=== PATIENT | female | born 1960 | race Caucasian/White ===

== ENCOUNTER 2024-01-06 06:18 | Inpatient (IN) | payer OTHER, SELFPAY ==
--- NOTE | 2023-12-01 11:41 | CM ---
Patient is scheduled for an elective R TKR on 01/06/24. Spoke with patient prior to surgery via telephone. Introduced role of Orthopedic Navigator. Patient reports that she lives alone in an old farmhouse with pie shaped steps to the second floor.
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 She has a cane, raised toilet seat and shower seat. She has never had VN services. PCP is TEJAL Rodriguez.
Discussed orthopedic program and post surgical plans. Reviewed anticipated length of stay and that goal is for her to return home at discharge. Also reviewed outpatient PT. Patient is in agreement with tentative plan and will go directly to
outpatient PT. She plans to go to her sister's home for a week or two (her sister's home is two story but patient will have a first floor set up. There are three steps to enter the home (2-1).
Patient will complete online education.
Plan: Orthopedic Navigator will remain available to assist with the care of patient and will reassess discharge needs after surgery.
[2023-12-18 09:17] VITALS: BMI 40.1
[2023-12-18 10:17] LABS: Hematocrit 44.4 % (37.0-47.0); Hemoglobin 14.8 g/dL (12.0-16.0); Mean Corp Hgb Conc. 33.3 g/dL (33.0-37.0); Mean Corpuscular Hgb 29.1 pg (27.0-31.0); Mean Corpuscular Volume 87.2 fL (81.0-99.0); Mean Platelet Volume 10.4 fL (7.4-10.4); Platelet Count 210 10^3/uL (130-400); Red Blood Cell Count 5.09 10^6/uL (4.20-5.40); Red Cell Dist. Width 12.6 % (11.5-14.5); White Blood Cell Count 6.9 10^3/uL (4.8-10.8)
[2023-12-18 10:53] LABS: ALT (SGPT) 18 U/L (0-35); AST (SGOT) 18 U/L (14-36); Albumin 4.2 g/dl (3.5-5.0); Alkaline Phosphatase 62 U/L (38-126); Blood Urea Nitrogen 17 mg/dl (7-17); Calcium 9.6 mg/dl (8.4-10.2); Carbon Dioxide 28 mmol/L (22-30); Chloride 100 mmol/L (98-107); Estimated Creatinine Clearance 95 ml/min; Glucose 116 mg/dl (70-99); Potassium 4.1 mmol/L (3.5-5.1); Sodium 136 mmol/L (135-145); Total Bilirubin 0.4 mg/dl (0.2-1.3); Total Protein 6.5 g/dl (6.3-8.2); eGFR > 60.00
[2023-12-18 12:23] LABS: Glycohemoglobin (HgbA1c) 5.9 % (4.0-5.6)
[2023-12-18 14:41] VITALS: BMI 40.1
[2024-01-06] VITALS (22 sets, daily range): BP systolic 75–145; BP diastolic 44–83; PULSE 78; O2SAT 95; BMI 40.1
[2024-01-06] MEDS: NORMOSOL-R 1000 IV ×2 (08:15→12:19)
[2024-01-06] MEDS: CELEBREX 200 MG PO (08:15)
[2024-01-06] MEDS: TYLENOL 650 MG PO ×4 (08:15→22:08)
--- NOTE | 2024-01-06 12:13 | W.PN.UPDATE ---
Update Note
Progress Note Update
R knee OA s/p R TKA w/ Dr Thompson 01/06/24
DVT prophylaxis - Eliquis at modified dosing, b/l venous foot pumps
- Will resume home dosing of Eliquis POD 3 if hemodynamically stable
HTN - + parameters - monitor BP
PAF - monitor on tele
- Continue Flecainide, Metoprolol
- Eliquis as stated above
Moderate, persistent asthma and KEVAN, noncompliant with device - monitor O2
- IS
- Resume inhalers
- Add supplemental O2 HS
Morbid obesity, BMI 40.1 - would benefit for Cefadroxil 500 mg PO BID x1 week upon d/c
HLD
ASD
Thyroid cancer status post total thyroidectomy
[2024-01-06] MEDS: ROXICODONE 5 MG PO ×3 (12:30→22:08)
--- NOTE | 2024-01-06 13:50 | PTCARENOTE ---
Pt received from the PACU via bed. Transport was w/o incident. Pt is AAOx3, HRR, lungs are clear, resp. easy. Pt with Aquacell drsg to her right Knee C/D/I, 2 pinpoint spots of drainage noted, no current bleeding noted at this time. VSS, Pt is
afebrile. Pt instructed on plan of care. Pt verbalized understanding of instructions. Call merino is within reach.
[2024-01-06] MEDS: LIDOCAINE 4% PATCH 2 PATCH TOPICAL (16:36)
[2024-01-06] MEDS: PROTONIX 40 MG PO (16:36)
[2024-01-06] MEDS: VITAMIN D3 (cholecalciferol) 25 MCG PO (16:36)
[2024-01-06] MEDS: ANCEF 5 IV (18:46)
[2024-01-06] MEDS: COLACE 100 MG PO (22:08)
[2024-01-06] MEDS: ELIQUIS 2.5 MG PO (22:08)
[2024-01-06] MEDS: DECADRON 4 MG PO (22:08)
[2024-01-06] MEDS: BACTROBAN 2% OINTMENT 1 APPLIC NASAL (22:09)
[2024-01-06] MEDS: TAMBOCOR 50 MG PO (22:12)
[2024-01-07] MEDS: TYLENOL 650 MG PO ×4 (00:53→11:58)
[2024-01-07] MEDS: ROXICODONE 10 MG PO ×2 (00:54→10:17)
[2024-01-07] MEDS: ANCEF 5 IV (02:15)
[2024-01-07 03:48] VITALS: BP 126/61
[2024-01-07] MEDS: SYNTHROID 175 MCG PO (05:58)
[2024-01-07] MEDS: ROXICODONE 5 MG PO ×2 (06:01→14:32)
[2024-01-07 06:38] VITALS: BP 122/53
[2024-01-07] MEDS: ADVAIR HFA 230/21 MCG INHALER 1 PUFF INH (07:23)
[2024-01-07] MEDS: BACTROBAN 2% OINTMENT 1 APPLIC NASAL (08:12)
[2024-01-07] MEDS: LIDOCAINE 4% PATCH 2 PATCH TOPICAL (08:12)
[2024-01-07] MEDS: TAMBOCOR 50 MG PO (08:13)
[2024-01-07] MEDS: VITAMIN D3 (cholecalciferol) 25 MCG PO (08:14)
[2024-01-07] MEDS: COLACE 100 MG PO (08:14)
[2024-01-07] MEDS: ELIQUIS 2.5 MG PO (08:14)
[2024-01-07] MEDS: PROTONIX 40 MG PO (08:14)
[2024-01-07] MEDS: TOPROL XL 50 MG PO (08:26)
--- NOTE | 2024-01-07 09:01 | CM ---
Addendum entered by Alem Borrero 01/07/24 12:57:
Patient did well with therapy. She is concerned about pain but feels comfortable going home.
Original Note:
Reviewed chart and held rounds with PT, OT and nursing. Patient admitted as planned for elective R TKR. Met with patient at bedside. Confirmed information previously obtained for assessment. Also discussed discharge plans. The plan is for patient to
return home at discharge. She will go to her sister's home at discharge. Patient will go directly to outpatient PT and will go to [facility]. She has an appointment scheduled for Thursday, 01/07. Reviewed need to schedule appointment with PA at .
Donna's office in two weeks for removal of erin.
Patient has a rolling walker, cane and shower seat.
She will use [facility] pharmacy for discharge prescriptions.
[2024-01-07] MEDS: DELTASONE 40 MG PO (10:17)
[2024-01-07] MEDS: NEURONTIN 200 MG PO (10:17)
[2024-01-07 12:00] VITALS: BP 119/69; PULSE 60; O2SAT 97
[2024-01-07 12:40] VITALS: BP 123/60
[2024-01-07 12:55] VITALS: BP 132/69; PULSE 60; O2SAT 95
--- NOTE | 2024-01-07 13:45 | W.PN.ORTHO ---
Today's Communication / Plan
-
D/c today since clinically stable, did well w/ PT and OT.
Assessment
.
Distal Motor Intact: Yes
Dressing:
Trace old incisional bleeding. Dressing otherwise C/D/I.
Assessment:
R knee OA s/p R TKA w/ Dr Thompson 01/06/24
DVT prophylaxis - Eliquis at modified dosing, b/l venous foot pumps
- Will resume home dosing of Eliquis POD 3 since hemodynamically stable
HTN - + parameters - BPs stable
PAF - maintaining NSR on tele
- Continue Flecainide, Metoprolol
- Eliquis as stated above
Moderate, persistent asthma and KEVAN, noncompliant with device - O2 stable on RA
- IS
- Resumed inhalers
- s/p supplemental O2 HS
Morbid obesity, BMI 40.1 - would benefit for Cefadroxil 500 mg PO BID x1 week upon d/c
HLD
ASD
Thyroid cancer status post total thyroidectomy
Plan
.
Surgery / Date: R TKA w/ Dr Thompson 01/06/24
DVT Prophylaxis: Other (Eliquis )
Activity:
Out of bed.
PT/OT
Discharge Plan: Home w/ Outpatient PT
Subjective
.
.:
Patient resting comfortably in her chair this AM.
R knee pain improving w/ pain med adjustments made yesterday and this AM.
Denies any new significant complaints.
Eager for potential d/c today.
Vital Signs and Labs
.
Vital Signs and Labs:
Lab Results
12/18/23 09:08
12/18/23 09:08
Temp Pulse Resp BP Pulse Ox
98.1 F 61 17 123/60 96
01/07/24 12:40 01/07/24 12:40 01/07/24 12:40 01/07/24 12:40 01/07/24 12:40
Non-invasive Hgb result: 14.1
Physical Exam
-
HEENT: No pallor, cyanosis, or jaundice. Throat clear.
NECK: Supple. No JVD.
RESPIRATORY: Lungs clear to auscultation.
CVS: S1, S2 normal. RRR.
ABDOMEN: Soft, non-tender. No distension. Morbidly obese.
EXTREMITIES: Mild post-op R knee edema. Strength equal, no calf pain with palpation/dorsiflexion. Calves soft.
COOPERATIVE EDUCATION COORDINATOR: AOx3. No focal deficits. assembler motor vehicle grossly intact
--- NOTE | 2024-01-07 14:00 | W.DS.TRANS ---
DC Summary - Tourist Information Assistant
-
Discharge Instructions:
Discharge Diagnosis/Procedures R knee OA s/p R TKA w/ Dr Thompson 01/06/24
Diet Other diet
Additional Diets Diabetic carb controlled x1 week for wound
healing/infection prevention; then resume
regular diet.
Activity As tolerated,With Walker
Driving Restrictions Not until seen by your Dr
Bathing Restrictions OK to Shower
Other Services PT
Wound Care Dressing to be removed 1 week post-surgery.
Holly to be removed in 2 weeks at follow-up
appointment with surgeon's office.
Instructions:
Stand-Alone Forms: Total Hip/Knee Replacement D/C
Changes to Home Medications: Yes
Discharge Medications:
DC Medications w/original date entered in [facility]
apixaban 5 mg tablet (Eliquis) 5 mg PO BID Blood Clot Prevention/Tx 07/06/20
fluticasone propionate 50 mcg/actuation nasal spray,suspension 1 spray intranasal DAILY PRN allergy 07/06/20
Lactobacills gasseri-Bifidobac bifidum,longum 1.5 billion cell capsule (Probiotic Colon Care) 1 cap PO DAILY Supplement 12/15/23
cholecalciferol (vitamin D3) 25 mcg (1,000 unit) tablet (Vitamin D3) 25 mcg PO DAILY Supplement 12/15/23
flecainide 50 mg tablet 50 mg PO Q12H Heart Disease/Condition 12/15/23
fluticasone 500 mcg-salmeterol 50 mcg/dose blistr powdr for inhalation (Advair Diskus) 1 inh inhalation DAILY Lung/Breathing Issues 12/15/23
levothyroxine 175 mcg tablet 175 mcg PO DAILY Thyroid 12/15/23
metoprolol succinate 25 mg tablet,extended release 24 hr 50 mg PO DAILY Blood Pressure 12/15/23
zinc acetate 50 mg (zinc) capsule 50 mg PO DAILY Supplement 12/15/23
mupirocin 2 % topical ointment 1 applic topical BID infection prevention #1 tube 12/18/23
ascorbic acid (vitamin C) 1,000 mg tablet,extended release (Vitamin C ER) 1,000 mg PO DAILY Supplement 01/06/24
acetaminophen 500 mg tablet 1,000 mg (2 x 500 mg) PO Q6H #60 tabs 01/07/24
albuterol sulfate 90 mcg/actuation aerosol inhaler 1 puff inhalation R Q4HPRN PRN asthma/SOB #6.7 grams 01/07/24
apixaban 2.5 mg tablet (Eliquis) 2.5 mg PO BID #3 tabs 01/07/24
cefadroxil 500 mg capsule 500 mg PO BID #14 caps 01/07/24
docusate sodium 100 mg capsule 100 mg PO BID #30 caps 01/07/24
gabapentin 100 mg capsule 200 mg (2 x 100 mg) PO TID neuropathic pain #30 caps 01/07/24
lidocaine 4 % topical patch 2 patch topical DAILY #30 ea 01/07/24
oxycodone 5 mg tablet 5 - 10 mg (1 - 2 x 5 mg) PO Q4H PRN moderate-severe pain #30 tabs 01/07/24
pantoprazole 40 mg tablet,delayed release 40 mg PO DAILY #30 tabs 01/07/24
prednisone 10 mg tablet 40 mg (4 x 10 mg) PO TAPER #20 tabs 01/07/24
prochlorperazine maleate 5 mg tablet 5 mg PO Q8H PRN nausea/vomiting #30 tabs 01/07/24
sennosides 8.6 mg tablet (Senna Laxative) 17.2 mg (2 x 8.6 mg) PO BID #30 tabs 01/07/24
Home Medication Changes
acetaminophen 500 mg tablet 1,000 mg (2 x 500 mg) PO Q6H #60 tabs 01/07/24
apixaban 2.5 mg tablet (Eliquis) 2.5 mg PO BID #3 tabs 01/07/24 - until POD 3
cefadroxil 500 mg capsule 500 mg PO BID #14 caps 01/07/24
docusate sodium 100 mg capsule 100 mg PO BID #30 caps 01/07/24
gabapentin 100 mg capsule 200 mg (2 x 100 mg) PO TID neuropathic pain #30 caps 01/07/24
lidocaine 4 % topical patch 2 patch topical DAILY #30 ea 01/07/24
oxycodone 5 mg tablet 5 - 10 mg (1 - 2 x 5 mg) PO Q4H PRN moderate-severe pain #30 tabs 01/07/24
pantoprazole 40 mg tablet,delayed release 40 mg PO DAILY #30 tabs 01/07/24
prednisone 10 mg tablet 40 mg (4 x 10 mg) PO TAPER #20 tabs 01/07/24
prochlorperazine maleate 5 mg tablet 5 mg PO Q8H PRN nausea/vomiting #30 tabs 01/07/24
sennosides 8.6 mg tablet (Senna Laxative) 17.2 mg (2 x 8.6 mg) PO BID #30 tabs 01/07/24
Pending Results: No
== END 2024-01-07 14:55 | disposition home or self-care (01) | DRG 470 ==
LOC: 2 SOUTH 06:18
PROVIDERS: ADMITTING PHYSICIAN Orthopaedic Surgery; FAMILY PHYSICIAN Nurse Practitioner Family
PROC: 0SRC0J9 Replacement of Right Knee Joint with Synthetic Substitute, Cemented, Open Approach (ICD-10-PCS; 2024-01-06)
DX: M17.11 Unilateral primary osteoarthritis, right knee (principal); Z68.41 Body mass index [BMI] 40.0-44.9, adult; E66.01 Morbid (severe) obesity due to excess calories; I10 Essential (primary) hypertension; I48.0 Paroxysmal atrial fibrillation; Z79.01 Long term (current) use of anticoagulants; J45.909 Unspecified asthma, uncomplicated; E78.5 Hyperlipidemia, unspecified
CPT/HCPCS: 36415; 73560; 80053; 83036; 85027; 87070; 94640; 97110; 97116; 97162; 97166; 97530; 97535; C1713; C1776

== ENCOUNTER 2024-07-06 03:45 | Observation (INO) | payer OTHER, SELFPAY ==
[2024-07-05 22:12] VITALS: BP 179/88
--- NOTE | 2024-07-05 22:46 | ED.GENMED ---
History of Present Illness
<PHAM Childs - Last Filed: 07/06/24 00:34>
General
Chief Complaint: Musculo-Skeletal Complaint
Source: patient
Time Seen by Provider: 07/05/24 22:46
Nursing documentation reviewed up to this point in time: agreed with
History of Present Illness
History of Present Illness:
Patient is a 64 year old female with a history of R TKA arthritis and a bakers cyst presenting to the ED with complaints of left knee pain and right arm pain x 3 hours. She states at 8pm her knee locked up and had a bout of sharp pain. That lead her
to place herself on the ground. She denies falling. When trying to get up, she felt a pop in her shoulder. This was followed by sharp pain in her arm and states her biceps now feels tight. The pain in her knee is only exacerbated when trying to bare
weight and extension of the knee. She has a history of arthritis in her left knee but states that her knee has never locked up and had sharp pain like this before. Sitting down she currently has no knee pain. Her arm pain is constant and described
as sharp when extending elbow, but a mild tightness at rest. Tylenol mildly alleviated pain. Patient denies any sob light headedness numbness tingling bruising.
Patient has a history of arthritis in her left knee and a R TKA. She states shes waiting to get her left knee replaced. Patient also admits to a bakers cyst in her right knee which she claims is what caused her knee to lock up. Patient denies
alcohol or tobacco use.
Past History
<PHAM Childs - Last Filed: 07/06/24 00:34>
Past History
ED Past Medical History: Arrthythmia (afib), Cancer (Thyroid cancer), COPD, HTN, Hypothyroidism and Other (closed ASD)
ED Past Surgical History: Cardiac (ASD closure, A. fib ablation) and Other (Thyroidectomy)
Social History
Tobacco: Non-smoker
Alcohol: None
Drug: None
Personal:
Living: with family
Employment: Employed
Family History
Family History: Other (Noncontributory)
Review of Systems
<PHAM Childs - Last Filed: 07/06/24 00:34>
Review of Systems
Constitutional: Reports no symptoms
Respiratory: Reports no symptoms
Cardiac: Reports no symptoms
Musculoskeletal: Reports joint pain (left knee ) and muscle pain (right arm )
Neurological: Reports no symptoms
Hematologic/Lymphatic: Reports no symptoms
Phy Exam
<PHAM Childs - Last Filed: 07/06/24 00:34>
General Physical Exam
General Presentation: mild distress
General age: appears stated age
General Habitus: normal
General Mental: alert
Cardiovascular Exam
Cardiovascular Exam: regular rate/rhythm, no edema, no gallop, no JVD and no murmur
Pulmonary Exam
Pulmonary Exam: lungs clear, no respiratory distress, no rales, chest non tender, no crackles, no rhonchi, no stridor, no wheezing and no cough
Sensory
Sensory Exam: intact (sensation intact to light touch on upper and lower extremities b/l)
Musculoskeletal Exam
Musculoskeletal Exam: other (no tenderness to palpation of left knee, pain with passive extension of knee at 40 degrees, pain with extension against resistance strength intact, left biceps tender to palpation and is tight, elbow and shoulder
strength intact.)
Course
<PHAM Childs - Last Filed: 07/06/24 00:34>
Orders/Labs/Results
Orders:
Orders
07/05/24 22:16
Knee, Left 4 or More Views [CR Knee - Left 4 Or More View*] Urgent
Comment:
Reason For Exam: pain
07/06/24 00:08
Pt Eval And Treat Urgent
Activity Level: Out of Bed-Early Mobility
Vital Signs
Initial and Last Documented VS:
Initial Vital Signs
Temp Pulse Resp BP Pulse Ox
98.7 F 65 15 179/88 94
07/05/24 22:12 07/05/24 22:12 07/05/24 22:12 07/05/24 22:12 07/05/24 22:12
Last Documented Vital Signs
Temp Pulse Resp BP Pulse Ox
98.7 F 65 15 179/88 94
07/05/24 22:12 07/05/24 22:12 07/05/24 22:12 07/05/24 22:12 07/05/24 22:12
<Vijay Harding DO - Last Filed: 07/06/24 00:11>
Orders/Labs/Results
Orders:
Orders
07/05/24 22:16
Knee, Left 4 or More Views [CR Knee - Left 4 Or More View*] Urgent
Comment:
Reason For Exam: pain
07/06/24 00:08
Pt Eval And Treat Urgent
Activity Level: Out of Bed-Early Mobility
Vital Signs
Initial and Last Documented VS:
Initial Vital Signs
Temp Pulse Resp BP Pulse Ox
98.7 F 65 15 179/88 94
07/05/24 22:12 07/05/24 22:12 07/05/24 22:12 07/05/24 22:12 07/05/24 22:12
Last Documented Vital Signs
Temp Pulse Resp BP Pulse Ox
98.7 F 65 15 179/88 94
07/05/24 22:12 07/05/24 22:12 07/05/24 22:12 07/05/24 22:12 07/05/24 22:12
<PHAM Childs - Last Filed: 07/06/24 00:34>
MDM/Problems Addressed
Differential Diagnosis Includes:
meniscus tear, biceps tear, DJD, bakers cyst
MDM/Problems Addressed:
xray of knee shows no fracture, place in knee immobilizer 1234a update knee immobilizer placed, admit for potential meniscus and biceps tear
<PHAM Childs - Last Filed: 07/06/24 00:34>
*Critical Care Note
Total Time (30-74mins, 75-104mins- exclusive of procedures): Not Applicable
ED Attending Note
<PHAM Childs - Last Filed: 07/06/24 00:34>
-
Portions of this chart may have been created with voice recognition software.� Occasional wrong word or��sound alike� substitutions may have occurred due to the inherent limitations of voice recognition software.
<Vijay Harding DO - Last Filed: 07/06/24 00:11>
ED Attending Note
Patient seen and examined by attending physician: Yes
I performed the substantive portion of visit, reviewed & personally made and approve the management plan that is documented in note by myself or MAY.: Yes
ED Attending Note:
Pleasant 64-year-old female presents with left knee pain and right arm pain for the last 3 hours. Patient states that her knee locked up around 8 PM and she reports having sharp pain. She did not fall. She was trying to get up out of a chair and
she was unable to do so. In the process she injured her right arm. She states that she had knee replacement on the right by Dr. Thompson 6 months ago. She states that her right knee is painful. Now she is complaining of left knee pain. She
states that she has been in rehab and is due to get the left knee replaced but for insurance reasons she is unable to do so until next year. She tried ambulating with a walker but was unable to. Patient was seen in conjunction with the PA student.
I have reviewed and agree with the history and treatment plan presented. On my independent physical exam, patient is awake, alert, and oriented x3, minimal acute distress while icing both her right arm and her left knee. She has good distal
pulses. No hip pain bilaterally on the phone test. Ankle is normal full range of motion without pain or tenderness to palpation. Left knee has a fullness behind the left knee especially on the left side. There is midline joint tenderness on the
left lateral side. Limited range of motion secondary to pain and obstruction. Right bicep is full and bulging consistent with a partial biceps tear. She does have good muscle strength. Good distal pulses.
Patient wishes to be discharged home. I do not see how this is an option since she is unable to ambulate with a walker. She has multiple steps in her home. Plan is to put her in a knee immobilizer and see if she can tolerate ambulating with a
walker. She has a suspected right bicep tear.
Discharge Plan
Departure
Patient Disposition: Admit
Date of Disposition: 07/06/24
Time of Disposition: 00:07
Admit to: Med/Surg
Presentation/result/management discussed w/ accepting MD/DO: Hospitalist
Condition: Good
Discharge Problem:
Acute internal derangement of left knee, Suspected right biceps tear
Prescriptions:
No Action
Eliquis 5 MG tablet
5 mg PO BID
fluticasone propionate 1 SPRAY spray,suspension
1 spray intranasal DAILY PRN (Reason: allergy)
zinc acetate 50 mg (zinc) Capsule
50 mg PO DAILY
fluticasone propion-salmeterol [Advair Diskus] 500-50 mcg/dose Blister With Device
1 inh INHALATION DAILY
metoprolol succinate 25 mg Tablet Extended Release 24 Hr
50 mg PO DAILY
Patient Comments:
took 25 mg 01/06/24 in am
cholecalciferol (vitamin D3) [Vitamin D3] 25 mcg (1,000 unit) Tablet
25 mcg PO DAILY
Probiotic Colon Care 1.5 billion cell Capsule
1 cap PO DAILY
levothyroxine 175 mcg Tablet
175 mcg PO DAILY
flecainide 50 mg Tablet
50 mg PO Q12H
mupirocin 2 % ointment
1 applic topical BID Qty: 1 0RF
Patient Comments:
started treatment thursday01/03/24 in am and completed BID, last completed 01/06/24 in am
Vitamin C 1,000 mg Tablet Extended Release
1,000 mg PO DAILY
docusate sodium 100 mg Capsule
100 mg PO BID Qty: 30 0RF
prochlorperazine maleate 5 mg Tablet
5 mg PO Q8H PRN (Reason: nausea/vomiting) Qty: 30 0RF
Eliquis 2.5 mg Tablet
2.5 mg PO BID Qty: 3 0RF
Rx Instructions:
Cut 5 mg tab in 09/29 (= 2.5 mg) and take twice a day until 4/12 PM.
Can resume Eliquis 5 mg twice daily on 01/08 AM
lidocaine 4 % Adhesive Patch,Medicated
2 patch topical DAILY Qty: 30 0RF
Rx Instructions:
Over the counter. 12 hours on, 12 hours off.
Apply to sides of right knee/thigh.
gabapentin 100 mg Capsule
200 mg PO TID Qty: 30 0RF
oxycodone 5 mg Tablet
5 - 10 mg PO Q4H PRN (Reason: moderate-severe pain) Qty: 30 0RF
Rx Instructions:
1 tab for moderate pain, 2 if severe.
Dx total joint.
sennosides [Senna Laxative] 8.6 mg Tablet
17.2 mg PO BID Qty: 30 0RF
pantoprazole 40 mg Tablet,Delayed Release (Dr/Ec)
40 mg PO DAILY Qty: 30 0RF
Rx Instructions:
Take daily while on post-surgical pain meds to reduce GI upset.
albuterol sulfate 90 mcg/actuation Hfa Aerosol Inhaler
1 puff inhalation R Q4HPRN PRN (Reason: asthma/SOB) Qty: 6.7 0RF
prednisone 10 mg tablet
40 mg PO TAPER Qty: 20 0RF
Rx Instructions:
4 TABS X 2 DAYS, 3 TABS X 2 DAYS, 2 TABS X 2 DAYS, 1 TAB X 2 DAYS, THEN STOP
cefadroxil 500 mg capsule
500 mg PO BID Qty: 14 0RF
Rx Instructions:
Start night of discharge and continue twice a day for 1 week.
acetaminophen 500 mg Tablet
1,000 mg PO Q6H Qty: 60 0RF
Rx Instructions:
DO NOT exceed >4000 mg daily.
Referrals:
Danika Leyva CRNP [Family Provider] -
Interventions
Interventions:
*Risk Screen - Suicide Last Done: 07/05/24 22:12
*General Assessment Last Done: 07/05/24 22:12
*Neglect/Abuse Screening Last Done: 07/05/24 22:12
*ED COVID-19 Vaccine History Last Done: 07/05/24 22:12
ED-Musculoskeletal Assessment Last Done: 07/05/24 22:54
Discharge Date and Time
Print Language: SOUTH [place]UDANESE
[2024-07-06] VITALS (13 sets, daily range): BP systolic 91–138; BP diastolic 60–75; PULSE 54–55; O2SAT 95; BMI 41.3
[2024-07-06] MEDS: ZOFRAN 4 MG IV (01:18)
[2024-07-06] MEDS: DILAUDID 0.5 MG IV ×2 (01:24→09:03)
[2024-07-06] MEDS: TYLENOL PO (01:34)
--- NOTE | 2024-07-06 02:21 | HPS.HSE ---
Family Physician
-
Family Physician: TEJAL Rodriguez
Chief Complaint
-
L Knee pain / R arm pain
History of Present Illness
Patient is a 64y F with PMH significant for A-Fib, hypertension and DJD who presents to ED complaining of left knee and right arm pain. Patient states that she has been feeling fairly well lately. She has chronic discomfort in the L knee and is
planning for TKA in 2024. This evening while readying for bed, her L knee 'gave out' on her. She started to fall and reached out to grab a chair with her R hand. She felt a 'pop' and immediate pain in the R shoulder. Patient had pain in the L
knee and R shoulder following this event. She did not strike her head. She did not lose consciousness.
Medical History
Past Medical History
Past Medical History: Reports Other
Additional Past Medical History:
Atrial Fibrillation
Moderate Persistent Asthma
Thyroid Cancer
Obesity
DJD
Past Surgical History: Reports Other
Additional Past Surgical History:
Cardioversions
PVI Ablation
Right TKA
ASD Repair
LEEP
Thyroidectomy
Social History
Tobacco: Non-smoker
Alcohol: None
Drug: None
Family History
Family History: Not pertinent
Allergies / Home Medications
Allergies reflects when Allergies were last updated in [facility].
Home Medications with original date entered in [facility]
Allergy/Medication List:
Allergies
Allergy/AdvReac Type Severity Reaction Status Date / Time
codeine Allergy Vomiting Verified 07/06/24 00:45
latex Allergy Rash Verified 07/06/24 00:45
Penicillins Allergy Rash Verified 07/06/24 00:45
epinephrine AdvReac Intermediate Atrial Verified 07/06/24 00:45
Fibrillation
Home Medications
fluticasone propionate 50 mcg/actuation nasal spray,suspension 1 spray intranasal DAILY PRN allergy 07/06/20
Lactobacills gasseri-Bifidobac bifidum,longum 1.5 billion cell capsule (Probiotic Colon Care) 1 cap PO DAILY Supplement 12/15/23
cholecalciferol (vitamin D3) 25 mcg (1,000 unit) tablet (Vitamin D3) 25 mcg PO DAILY Supplement 12/15/23
flecainide 50 mg tablet 50 mg PO Q12H Heart Disease/Condition 12/15/23
fluticasone 500 mcg-salmeterol 50 mcg/dose blistr powdr for inhalation (Advair Diskus) 1 inh inhalation DAILY Lung/Breathing Issues 12/15/23
levothyroxine 175 mcg tablet 200 mcg PO DAILY Thyroid 12/15/23
metoprolol succinate 25 mg tablet,extended release 24 hr 100 mg PO DAILY Blood Pressure 12/15/23
zinc acetate 50 mg (zinc) capsule 50 mg PO DAILY Supplement 12/15/23
albuterol sulfate 90 mcg/actuation aerosol inhaler 1 puff inhalation R Q4HPRN PRN asthma/SOB #6.7 grams 01/07/24
Frankincense topical PRN inflammation 07/06/24
acetaminophen 500 mg tablet 500 mg PO Q6H PRN pain 07/06/24
apixaban 2.5 mg tablet (Eliquis) 5 mg PO BID 07/06/24
cyanocobalamin (vitamin B-12) 1,000 mcg tablet (Vitamin B-12) 1,000 mcg PO DAILY 07/06/24
Review of Systems
-
History Source: Patient
A 12 point ROS was completed and negative except as noted: Yes
Constitutional: Denies Fever or Chills
Respiratory: Denies Cough or Trouble Breathing
Cardiac: Denies Chest Pain or Palpitations
Abdomen/GI: Denies Abdominal Pain, Nausea, Vomiting or Diarrhea
: Denies Dysuria or Frequency
Musculoskeletal: Reports Joint Pain; Denies Edema
Neurological: Denies Dizzy or Headache
Psych: Denies Depression or Anxiety
Physical Exam
Vital Signs
Vital Signs
Temp Pulse Resp BP Pulse Ox
98.7 F 65 15 179/88 95
07/05/24 22:12 07/05/24 22:12 07/05/24 22:12 07/05/24 22:12 07/06/24 01:53
Physical Exam
General: Other (64y F in no acute distress.)
HEENT: Moist mucous membranes
Respiratory: Clear; No Wheezes, Rales or Rhonchi
Cardiac: S1/S2 and Regular Rhythm; No Murmur
GI: Soft, Non Tender, Non Distended and Normal Bowel Sounds
Musculoskeletal: No Clubbing, No Cyanosis, No Edema and Other (R biceps with prominence and focal tenderness c/w partial tear. No anterior shoulder tenderness. L Knee with posterior / lateral tenderness - pain with weight bearing.)
Neuro: AO x 3
Impression/Plan
-
A/P: Patient is a 64y F with PMH significant for A-Fib, hypertension and DJD who presents to ED after fall at home complaining of L knee and R shoulder pain.
Ambulatory Dysfunction
- Observe overnight for further evaluation and treatment.
- Due to her combination of injuries, patient is not safe for discharge to home alone this evening.
- PT / OT evaluations in the AM for ambulation / mobility strategies.
Left Knee Pain
- Known DJD in the knee and planned TKA in the future.
- ? acute soft tissue / structural injury during fall
- Immobilizer in place for now.
- Ortho evaluation for additional recommendations.
Right Biceps Tear
- History and exam c/w partial biceps tear.
- Supportive care / pain control.
- Ortho evaluation for additional recommendations.
Paroxysmal Atrial Fibrillation
- Stable / in NSR at present.
- Continue current medications including flecainide, Eliquis, etc.
- Monitor on tele given antiarrhythmic medications.
Moderate Persistent Asthma
- Stable. No evidence of acute exacerbation.
- Continue daily Advair.
Obesity due to excess calories
- Affects all aspects of care.
- Encourage healthy diet and exercise as tolerated for goal of weight loss.
DVT Prophylaxis: On Eliquis.
Code Status: Full
[2024-07-06] MEDS: TYLENOL 1000 MG PO ×2 (04:50→09:03)
[2024-07-06 05:28] LABS: Hematocrit 39.4 % (37.0-47.0); Hemoglobin 13.6 g/dL (12.0-16.0); Mean Corp Hgb Conc. 34.5 g/dL (33.0-37.0); Mean Corpuscular Hgb 29.9 pg (27.0-31.0); Mean Corpuscular Volume 86.6 fL (81.0-99.0); Mean Platelet Volume 9.8 fL (7.4-10.4); Platelet Count 199 10^3/uL (130-400); Red Blood Cell Count 4.55 10^6/uL (4.20-5.40); Red Cell Dist. Width 12.7 % (11.5-14.5); White Blood Cell Count 7.1 10^3/uL (4.8-10.8)
[2024-07-06 05:55] LABS: Blood Urea Nitrogen 19 mg/dl (7-17); Calcium 8.9 mg/dl (8.4-10.2); Carbon Dioxide 25 mmol/L (22-30); Chloride 102 mmol/L (98-107); Estimated Creatinine Clearance 96 ml/min; Glucose 105 mg/dl (70-99); Potassium 4.6 mmol/L (3.5-5.1); Sodium 139 mmol/L (135-145); eGFR > 60.00
[2024-07-06] MEDS: SYNTHROID 200 MCG PO (06:10)
[2024-07-06] MEDS: TAMBOCOR 50 MG PO (06:44)
[2024-07-06] MEDS: ADVAIR HFA 230/21 MCG INHALER 2 PUFF INH (08:37)
[2024-07-06] MEDS: ELIQUIS 5 MG PO (09:03)
--- NOTE | 2024-07-06 12:36 | CM ---
Addendum entered by Annita Otto RN 07/06/24 13:37:
Patient for discharge to home today. CM updated [facility] medical scientific liaison with discharge.
PLAN: Home with [facility].
Addendum entered by Annita Otto RN 07/06/24 12:39:
Physical Address:
[facility]
[place] [id number]
Original Note:
Cm met with patient in room. Patient is currently under observation. CM explain observation status at length. Patient refusing to sign OBS letter because she does not agree with level of care. Cm provided patient with copy of OBS letter for her
review.
CM reviewed PT notes. Plan for patient to return home with [facility]. JOSE updated [facility] medical scientific liaison with new referral.
PLAN: Home with home PT.
--- NOTE | 2024-07-06 12:49 | W.PN.UPDATE ---
Update Note
Progress Note Update
Seen and examined independent of overnight physician. States pain was relieved after receiving IV pain medication earlier today. States ice has significantly improved the swelling in the left knee and right shoulder. [facility] worked with physical
therapy earlier today and agreed and said okay if she has to return home. Patient agreed for [facility] therapy. Patient understands return to ER with increased left knee pain and right bicep pain. Patient says she will follow-up with [facility]
orthopedic in the office.
General: Other (64y F in no acute distress.)
HEENT: Moist mucous membranes
Respiratory: Clear; No Wheezes, Rales or Rhonchi
Cardiac: S1/S2 and Regular Rhythm; No Murmur
GI: Soft, Non Tender, Non Distended and Normal Bowel Sounds
Musculoskeletal: No Clubbing, No Cyanosis, No Edema and Other (R biceps with prominence and focal tenderness c/w partial tear. No difficulty extending all function of the right elbow. Intact light radial and ulnar pulses. No anterior shoulder
tenderness. L Knee with posterior / lateral tenderness/knee brace noted)
Neuro: AO x 3
A/P: Patient is a 64y F with PMH significant for A-Fib, hypertension and DJD who presents to ED after fall at home complaining of L knee and R shoulder pain.
Ambulatory Dysfunction
- PT / OT evaluations -home VN.
Left Knee Pain
- Known DJD in the knee and planned TKA in the future.
- Knee xray negative for fracture. Due to undergo LEFT TKA in near future.
- Immobilizer in place for now.
- Ortho was notified overnight who recommended OP f/u in office.
- Pt knows to return to ER if with increase swelling/pain
Right Biceps Tear
- History and exam c/w partial biceps tear.
- Supportive care / pain control/Ice pack
- Ortho was notified overnight who recommended OP f/u in office. Pt knows to return to ER if with increase swelling/pain
Paroxysmal Atrial Fibrillation
- Stable / in NSR at present.
- Continue current medications including flecainide, Eliquis, etc.
- Monitor on tele given antiarrhythmic medications.
Moderate Persistent Asthma
- Stable. No evidence of acute exacerbation.
- Continue daily Advair.
Obesity due to excess calories
- Affects all aspects of care.
- Encourage healthy diet and exercise as tolerated for goal of weight loss.
DVT Prophylaxis: On Eliquis.
Code Status: Full
--- NOTE | 2024-07-06 12:56 | W.DCSUMMARY ---
Discharge Summary
Discharge Data
Date of Admission: 07/06/24
Date of Discharge: 07/06/24
-
Pending Results: No
Hospital Course
Patient is a 64y F with PMH significant for A-Fib, hypertension and DJD who presents to ED after fall at home complaining of L knee and R shoulder pain. Patient left knee x-ray was negative for fracture. Patient was kept in place. Patient was
able to ambulate with a walker. Patient worked with physical and Occupational Therapy. Patient with suspected right bicep tear partial. Swelling and pain was controlled with ice and pain medication. Patient was eval by physical and Occupational
Therapy. Patient will call and make an appointment with Dr. Thompson in the office as she had seen them in the past. Patient understands return to ER with increased left knee pain and right bicep pain. Patient says she will follow-up with [facility] orthopedic in the office. Patient requested pain medication as with severe pain and was agreeable to take oxycodone as she tolerated that in the past.
Discharge Plan
-
Patient Disposition: Home with Home Care
Discharge Diagnosis/Procedures: Mechanical fall
Left knee pain
Suspected right partial bicep tear
Condition: Fair
Diet: As tolerated
Activity: With assistance, As tolerated and No strenuous activity
Referrals:
Danika Leyva CRNP [Family Provider] -
Srikanth Thompson MD [Active] - in less than 1 week
Prescriptions:
New
oxycodone 5 mg Tablet
5 mg PO BIDPRN PRN (Reason: severe pain) Qty: 8 0RF
Continued
fluticasone propionate 1 SPRAY spray,suspension
1 spray intranasal DAILY PRN (Reason: allergy)
zinc acetate 50 mg (zinc) Capsule
50 mg PO DAILY
fluticasone propion-salmeterol [Advair Diskus] 500-50 mcg/dose Blister With Device
1 inh INHALATION DAILY
metoprolol succinate 25 mg Tablet Extended Release 24 Hr
50 mg PO DAILY
Patient Comments:
took 25 mg 01/06/24 in am
cholecalciferol (vitamin D3) [Vitamin D3] 25 mcg (1,000 unit) Tablet
25 mcg PO DAILY
Probiotic Colon Care 1.5 billion cell Capsule
1 cap PO DAILY
levothyroxine 175 mcg Tablet
200 mcg PO DAILY
flecainide 50 mg Tablet
50 mg PO Q12H
albuterol sulfate 90 mcg/actuation Hfa Aerosol Inhaler
1 puff inhalation R Q4HPRN PRN (Reason: asthma/SOB) Qty: 6.7 0RF
cyanocobalamin (vitamin B-12) [Vitamin B-12] 1,000 mcg Tablet
1,000 mcg PO DAILY
acetaminophen 500 mg tablet
500 mg PO Q6H PRN (Reason: pain)
Rx Instructions:
DO NOT exceed >4000 mg daily.
Eliquis 2.5 mg tablet
5 mg PO BID
Rx Instructions:
Cut 5 mg tab in 09/29 (= 2.5 mg) and take twice a day until 4/12 PM.
Can resume Eliquis 5 mg twice daily on 413 AM
Frankincense
1 applic topical DAILYPRN PRN (Reason: knee pains)
Discharge Orders:
Discharge Patient (As Directed); Ordered 07/06/24
Ordered By: Marvel Felix
Discharge Date and Time
Print Language: ICELANDIC
--- NOTE | 2024-07-06 13:12 | W.[place]-PDMP ---
[place]-PDMP
-
Checked the [place]- Prescription Drug Monitoring Program website, no red flags identified; safe to proceed with prescription.
[2024-07-06] MEDS: TOPROL XL 50 MG PO (13:45)
--- NOTE | 2024-07-06 14:23 | VNURNOTE ---
[facility] to [facility], purpose, recent referral. No answer, Left message. Referral accepted in [facility].
--- NOTE | 2024-07-08 11:40 | VNURNOTE ---
Received call back from patient:
Home Health Liaison discussed [facility] nurse/therapy, visits, schedule and homebound status. Patient is agreeable and understands that visits at home will be 2-3 x per week to assess and teach medical management.
[facility]N brochure provided with contact information. Patient is aware that [facility]N will contact them for start of care within a day or two.
[facility] referral accepted in [facility]. [facility] Intake aware.
== END 2024-07-06 14:45 | disposition home health service (06) ==
LOC: ED 03:45
PROVIDERS: ADMITTING PHYSICIAN Hospitalist; ATTENDING PHYSICIAN Hospitalist; EMERGENCY PHYSICIAN Student in an Organized Health Care Education/Training Program; FAMILY PHYSICIAN Nurse Practitioner Family
DX: S46.211A Strain of muscle, fascia and tendon of other parts of biceps, right arm, initial encounter (principal); X58.XXXA Exposure to other specified factors, initial encounter; M17.12 Unilateral primary osteoarthritis, left knee; M25.562 Pain in left knee; M79.601 Pain in right arm; I10 Essential (primary) hypertension; J45.40 Moderate persistent asthma, uncomplicated; J44.89 Other specified chronic obstructive pulmonary disease; E66.09 Other obesity due to excess calories; R26.2 Difficulty in walking, not elsewhere classified; E03.9 Hypothyroidism, unspecified; I48.0 Paroxysmal atrial fibrillation; Z85.850 Personal history of malignant neoplasm of thyroid; Z90.89 Acquired absence of other organs; Z96.651 Presence of right artificial knee joint; Z79.01 Long term (current) use of anticoagulants; Z79.51 Long term (current) use of inhaled steroids; Z79.890 Hormone replacement therapy; Z68.41 Body mass index [BMI] 40.0-44.9, adult; Z88.5 Allergy status to narcotic agent; Z88.0 Allergy status to penicillin; Z88.8 Allergy status to other drugs, medicaments and biological substances; Z91.040 Latex allergy status
CPT/HCPCS: 73564; 80048; 85027; 94640; 97163; 97167; 97530; 97535; G0378

== ENCOUNTER → 2024-07-29 12:29 | Outpatient (REF) | payer OTHER, MEDICARE, SELFPAY | LOC: RAD 12:29 | PROVIDERS: ATTENDING PHYSICIAN Physician Assistant; FAMILY PHYSICIAN Nurse Practitioner Family | DX: R10.11 Right upper quadrant pain (principal) | CPT/HCPCS: 76700 ==

== ENCOUNTER → 2024-08-18 10:32 | Outpatient (REF) | payer OTHER, SELFPAY | LOC: HWRAD 10:32 | PROVIDERS: ATTENDING PHYSICIAN Internal Medicine Endocrinology, Diabetes & Metabolism; FAMILY PHYSICIAN Nurse Practitioner Family | DX: M81.0 Age-related osteoporosis without current pathological fracture (principal) | CPT/HCPCS: 77080 ==

== ENCOUNTER 2024-09-07 06:08 | Day surgery (SDC) | payer OTHER, SELFPAY ==
[2024-08-09 10:16] VITALS: BMI 42.1
[2024-08-09 10:43] LABS: Hematocrit 46.1 % (37.0-47.0); Hemoglobin 15.5 g/dL (12.0-16.0); Mean Corp Hgb Conc. 33.6 g/dL (33.0-37.0); Mean Corpuscular Hgb 29.5 pg (27.0-31.0); Mean Corpuscular Volume 87.8 fL (81.0-99.0); Mean Platelet Volume 10.3 fL (7.4-10.4); Platelet Count 216 10^3/uL (130-400); Red Blood Cell Count 5.25 10^6/uL (4.20-5.40); Red Cell Dist. Width 12.5 % (11.5-14.5); White Blood Cell Count 6.4 10^3/uL (4.8-10.8)
[2024-08-09 11:03] LABS: ALT (SGPT) 24 U/L (0-35); AST (SGOT) 19 U/L (14-36); Albumin 4.5 g/dl (3.5-5.0); Alkaline Phosphatase 55 U/L (38-126); Blood Urea Nitrogen 15 mg/dl (7-17); Calcium 9.6 mg/dl (8.4-10.2); Carbon Dioxide 31 mmol/L (22-30); Chloride 101 mmol/L (98-107); Estimated Creatinine Clearance 75 ml/min; Glucose 97 mg/dl (70-99); Potassium 4.4 mmol/L (3.5-5.1); Sodium 140 mmol/L (135-145); Total Bilirubin 0.4 mg/dl (0.2-1.3); Total Protein 6.8 g/dl (6.3-8.2); eGFR > 60.00
[2024-08-09 11:18] LABS: Glycohemoglobin (HgbA1c) 5.6 % (4.0-5.6)
--- NOTE | 2024-08-24 15:04 | VNURNOTE ---
Patient is scheduled for an elective L ALEC on 09/07/24- She is a same day patient with Dr Thompson. Spoke with patient prior to surgery. Introduced role of [facility] Liaison. Patient reports that she lives alone in a MULTI story home.
There are 2 steps to enter and a flight of steps to the second floor.
There is a powder room on the mid level project manager. She currently functions independently. She has a raised toilet seat, cane and rolling walker.
She had VN services in the past.
PCP is Danika Leyva
Discussed [facility] joint protocol and post surgical plans.
Reviewed that she will have VN services initially and will then start outpatient PT.
Patient will go to [facility] in [place] for outpatient PT. Scheduled for 09/09.
Patient is in agreement with plan and states that her sister will be home with her. Advised to bring RW day of surgery. Referral placed in [facility].
Plan: [facility] per [facility] joint protocol then outpt PT on 09/09
[2024-09-01 12:58] VITALS: BMI 42.1
[2024-09-07] VITALS (13 sets, daily range): BP systolic 97–165; BP diastolic 62–92; PULSE 63–64; O2SAT 93–96; BMI 42.1
[2024-09-07] MEDS: CELEBREX 200 MG PO (07:03)
[2024-09-07] MEDS: TYLENOL 650 MG PO (07:03)
[2024-09-07] MEDS: NORMOSOL-R/PLASMALYTE-A 1000 IV (07:09)
--- NOTE | 2024-09-07 07:58 | W.DS.TRANS ---
DC Summary - Due Diligence Coordinator
-
Discharge Instructions:
Discharge Diagnosis/Procedures L ELIAS Thompson 09/07/24
Diet As tolerated
Activity With Walker
Driving Restrictions No driving
Bathing Restrictions OK to Shower
Instructions:
Stand-Alone Forms: SDS Total Hip and Knee D/C
Changes to Home Medications: Yes
Discharge Medications:
DC Medications w/original date entered in [employer]
fluticasone propionate 50 mcg/actuation nasal spray,suspension 1 spray intranasal DAILY PRN allergy 07/06/20
cholecalciferol (vitamin D3) 25 mcg (1,000 unit) tablet (Vitamin D3) 25 mcg PO DAILY Supplement 12/15/23
flecainide 50 mg tablet 50 mg PO Q12H Heart Disease/Condition 12/15/23
zinc acetate 50 mg (zinc) capsule 50 mg PO DAILY Supplement 12/15/23
albuterol sulfate 90 mcg/actuation aerosol inhaler 1 puff inhalation R Q4HPRN PRN asthma/SOB #6.7 grams 01/07/24
Frankincense 1 applic topical DAILYPRN PRN knee pains 07/06/24
cyanocobalamin (vitamin B-12) 1,000 mcg tablet (Vitamin B-12) 1,000 mcg PO DAILY 07/06/24
fluticasone 500 mcg-salmeterol 50 mcg/dose blistr powdr for inhalation (Advair Diskus) 1 inh inhalation BID 09/01/24
metoprolol tartrate 50 mg tablet 25 mg PO BID 09/01/24
mupirocin 2 % topical ointment 1 applic topical BID 09/01/24
omeprazole 20 mg tablet,delayed release 20 mg PO DAILY 09/01/24
Saccharomyces boulardii 250 mg capsule (Florastor) 250 mg PO BID #1 cap 09/07/24
acetaminophen 325 mg tablet (Tylenol) 650 mg (2 x 325 mg) PO QID #1 tab 09/07/24
acetaminophen 500 mg tablet 1,000 mg (2 x 500 mg) PO QID #0 tabs 09/07/24
apixaban 5 mg tablet (Eliquis) 2.5 mg (1/2 x 5 mg) PO BID Blood clot prevention/afib #1 tab 09/07/24
cefadroxil 500 mg capsule 500 mg PO BID infection prevention #14 caps 09/07/24
dexamethasone 4 mg tablet 4 mg PO BID inflammation #6 tabs 09/07/24
docusate sodium 100 mg capsule (Colace) 100 mg PO BID stool softner #1 cap 09/07/24
levothyroxine 200 mcg capsule 200 mcg PO DAILY 09/07/24
magnesium hydroxide 400 mg/5 mL oral suspension (Milk of Magnesia) 30 ml PO HS PRN Constipation #1 mL 09/07/24
ondansetron 4 mg disintegrating tablet 4 mg PO Q6H PRN n/v #20 tabs 09/07/24
oxycodone 5 mg tablet 5 mg PO Q6H PRN 1 tab moderate pain, 2 tabs severe pain #30 tabs 09/07/24
sennosides 8.6 mg tablet (Senokot) 17.2 mg (2 x 8.6 mg) PO BID laxative #2 tabs 09/07/24
Home Medication Changes
mupirocin 2 % topical ointment 1 applic topical BID 09/01/24
omeprazole 20 mg tablet,delayed release 20 mg PO DAILY 09/01/24
Saccharomyces boulardii 250 mg capsule (Florastor) 250 mg PO BID #1 cap 09/07/24
acetaminophen 325 mg tablet (Tylenol) 650 mg (2 x 325 mg) PO QID #1 tab 09/07/24
acetaminophen 500 mg tablet 1,000 mg (2 x 500 mg) PO QID #0 tabs 09/07/24
apixaban 5 mg tablet (Eliquis) 2.5 mg (1/2 x 5 mg) PO BID Blood clot prevention/afib #1 tab 09/07/24
cefadroxil 500 mg capsule 500 mg PO BID infection prevention #14 caps 09/07/24
dexamethasone 4 mg tablet 4 mg PO BID inflammation #6 tabs 09/07/24
docusate sodium 100 mg capsule (Colace) 100 mg PO BID stool softner #1 cap 09/07/24
levothyroxine 200 mcg capsule 200 mcg PO DAILY 09/07/24
magnesium hydroxide 400 mg/5 mL oral suspension (Milk of Magnesia) 30 ml PO HS PRN Constipation #1 mL 09/07/24
ondansetron 4 mg disintegrating tablet 4 mg PO Q6H PRN n/v #20 tabs 09/07/24
oxycodone 5 mg tablet 5 mg PO Q6H PRN 1 tab moderate pain, 2 tabs severe pain #30 tabs 09/07/24
sennosides 8.6 mg tablet (Senokot) 17.2 mg (2 x 8.6 mg) PO BID laxative #2 tabs 09/07/24
Pending Results: No
[2024-09-07] MEDS: ROXICODONE 5 MG PO ×2 (10:12→10:38)
[2024-09-07] MEDS: NEURONTIN 300 MG PO (11:00)
[2024-09-07] MEDS: ATIVAN 0.5 MG IV (11:42)
[2024-09-07] MEDS: ANCEF 5 IV (11:51)
[2024-09-07] MEDS: DECADRON 4 MG IV (11:51)
--- NOTE | 2024-09-07 12:30 | PTCARENOTE ---
Patient had a lot of pain rated 9/10 after arriving back from PACU. Derick Hooper contacted and order for Gabapentin 300 mg was given. Patient also received 2 oxycodone po within 1 hour of eachother for pain. Ellen Hooper also ordered Decadron and
IV Ativan. Patients pain is now 4/10. Will monitor patient.
--- NOTE | 2024-09-07 12:48 | PTCARENOTE ---
Patient got up with therapy and ambulated. Patient became nauseated and had to sit down in the wheelchair. Patient put back to bed. BP 97/62. Patient receiving IV fluids at the present time and resting prior to trying therapy again. Will monitor
patient.
== END 2024-09-07 14:10 | disposition home or self-care (01) ==
LOC: SDS 06:08
PROVIDERS: ATTENDING PHYSICIAN Orthopaedic Surgery; FAMILY PHYSICIAN Nurse Practitioner Family; REFERRING PHYSICIAN Internal Medicine Cardiovascular Disease
PROC: 0SRD0J9 Replacement of Left Knee Joint with Synthetic Substitute, Cemented, Open Approach (ICD-10-PCS; 2024-09-07)
DX: M17.12 Unilateral primary osteoarthritis, left knee (principal)
CPT/HCPCS: 27447; 36415; 73560; 80053; 83036; 85027; 87070; 97116; 97162; 97530; C1713; C1776

== ENCOUNTER 2025-01-01 23:54 | Emergency (ER) | payer OTHER, SELFPAY ==
[2025-01-01 23:54] VITALS: BMI 42.9
[2025-01-01 23:58] VITALS: BP 194/104
[2025-01-02 00:45] VITALS: BP 154/77
[2025-01-02 01:00] VITALS: BP 155/74
[2025-01-02 01:22] LABS: % Basophils 0.2 % (0-2); % Eosinophils 3.6 % (0-6); % Immature Granulocytes 0.4 % (0-0.5); % Lymphocytes 16.5 % (20.5-51.1); % Monocytes 9.6 % (1.7-9.3); % Neutrophils 69.7 % (42.2-75.2); Absolute Eosinophils 0.2 10^3/uL (0-0.7); Absolute Lymphocytes 0.9 10^3/uL (1.2-3.4); Absolute Monocytes 0.5 10^3/uL (0.1-0.6); Absolute Neutrophils 3.6 10^3/uL (1.4-6.5); Hematocrit 41.1 % (37.0-47.0); Hemoglobin 14.1 g/dL (12.0-16.0); Mean Corp Hgb Conc. 34.3 g/dL (33.0-37.0); Mean Corpuscular Hgb 28.8 pg (27.0-31.0); Mean Corpuscular Volume 83.9 fL (81.0-99.0); Mean Platelet Volume 9.7 fL (7.4-10.4); Nucleated Red Blood Cells % 0 %; Platelet Count 200 10^3/uL (130-400); Red Cell Dist. Width 12.7 % (11.5-14.5); White Blood Cell Count 5.2 10^3/uL (4.8-10.8)
--- NOTE | 2025-01-02 01:33 | ED.GENMED ---
History of Present Illness
General
Chief Complaint: Blood Pressure Problem
Source: patient
Exam Limitations: none
Time Seen by Provider: 01/02/25 01:02
History of Present Illness
History of Present Illness:
Pleasant 64-year-old female presents to the emergency department with hypertension. Patient states that she took her blood pressure at 8 PM and it was elevated. She states that it was 200/108. She called her gse mechanic and he advised her to
take one half of a losartan pill. She waited an hour and her blood pressure came down slightly. 186/96. She called her gse mechanic who advised her to come into the emergency department. Patient had cataract surgery on Thursday at has been on
eyedrops since. Patient denies chest pain or shortness of breath. She denies headache blurry vision or dizziness. She states her only symptom was fatigue. She does not report dyspnea on exertion. She reports no fever or chills. At time of
exam, her blood pressure was in the 150s and she states that she was asymptomatic.
Past History
Past History
ED Past Medical History: Arrthythmia (afib), Cancer (Thyroid cancer), COPD, HTN, Hypothyroidism and Other (closed ASD)
ED Past Surgical History: Cardiac (ASD closure, A. fib ablation) and Other (Thyroidectomy)
Social History
Tobacco: Non-smoker
Alcohol: None
Drug: None
Personal:
Living: with family
Employment: Employed
Family History
Family History: Other (Noncontributory)
Review of Systems
Review of Systems
Allergies reviewed?: Yes
All Other Systems: ROS reviewed and negative except as documented in HPI and ROS
Constitutional: Reports fatigue; Denies fever, sleep disturbance or chills
EENT: Reports no symptoms
Respiratory: Denies cough, hemoptysis or trouble breathing
Cardiac: Denies chest pain, diaphoresis or palpitations
ABD/GI: Reports no symptoms
: Reports no symptoms
Musculoskeletal: Reports no symptoms
Skin: Reports no symptoms
Neurological: Reports no symptoms; Denies dizzy, headache or numbness
Endocrine: Reports no symptoms
Hematologic/Lymphatic: Reports no symptoms
Psychiatric: Reports anxiety
Phy Exam
General Physical Exam
General Presentation: well appearing and no apparent distress
General Skin: warm and dry
General Habitus: normal
General Mental: alert
General Hydration: appears well hydrated
ENT Exam
ENT Exam: EOMI, pharynx normal, neck supple and normocephalic
Eye Exam
Eye Exam: PERRL, cornea clear and conjunctiva normal
Cardiovascular Exam
Cardiovascular Exam: regular rate/rhythm, no edema, no murmur and normal peripheral pulses
Pulmonary Exam
Pulmonary Exam: lungs clear, no respiratory distress, no rales, no crackles, no rhonchi, no stridor, no wheezing and no cough
Gastrointestinal Exam
Gastrointestinal Exam: normal bowel sounds, non tender, soft, no organomegaly, no pulsatile mass and non distended
Neurological Exam
Neurological Exam: alert, oriented x3, no motor deficits and speech normal
Musculoskeletal Exam
Musculoskeletal Exam: full ROM and no edema
Skin Exam
Skin Exam: normal color, warm/dry, no rash and no petechia
Psychiatric Exam
Psychiatric Exam: normal mood/affect
Course
Orders/Labs/Results
Orders:
Orders
01/02/25 00:49
Electrocardiogram (*1) Urgent
Reason for Study: Chest Pain
Cardiac Monitoring- Treatment ONCE
EKG- Treatment ONCE
IV Insert/Care/Rem.- Treatment PRN
O2 Therapy [RESP] Urgent
Titrate/Wean O2 to maintain O2 sat greater than (%): 90
Special Instructions: Maintain sats >/=90%
Pulse Ox/spot Check [RESP] Urgent
Quantity: 1
Special Instructions: ON ROOM AIR
01/02/25 01:08
Complete Blood Count/With Diff Urgent
Comprehensive Metabolic Panel Urgent
Troponin I Urgent
Abnormal Lab Results
01/02/25
01:08
Absolute Lymphs (auto) 0.9 L 10^3/uL
(1.2-3.4)
Lymphocytes % 16.5 L %
(20.5-51.1)
Monocytes % 9.6 H %
(1.7-9.3)
BUN 18 H mg/dl
(7-17)
Glucose 116 H mg/dl
(70-99)
01/02/25 01:08
01/02/25 01:08
Vital Signs
Initial and Last Documented VS:
Initial Vital Signs
Temp Pulse Resp BP Pulse Ox
98.1 F 64 20 194/104 98
01/01/25 23:58 01/01/25 23:58 01/01/25 23:58 01/01/25 23:58 01/01/25 23:58
Last Documented Vital Signs
Temp Pulse Resp BP Pulse Ox
98.1 F 59 18 149/77 96
01/01/25 23:58 01/02/25 03:30 01/02/25 03:30 01/02/25 03:00 01/02/25 03:30
*Pulse Oximetry
Patient hypoxic: no
*Critical Care Note
Total Time (30-74mins, 75-104mins- exclusive of procedures): Not Applicable
ED Attending Note
-
Portions of this chart may have been created with voice recognition software.� Occasional wrong word or��sound alike� substitutions may have occurred due to the inherent limitations of voice recognition software.
Discharge Plan
Departure
Patient Disposition: Home (Routine Discharge)
Date of Disposition: 01/02/25
Time of Disposition: 03:27
Patient with high blood pressure during this ER visit?: No
Discharge Problem:
Hypertension
Instructions: High Blood Pressure (DC), BLOOD PRESSURE
Prescriptions:
No Action
fluticasone propionate 1 SPRAY spray,suspension
1 spray intranasal DAILY PRN (Reason: allergy)
zinc acetate 50 mg (zinc) Capsule
50 mg PO DAILY
cholecalciferol (vitamin D3) [Vitamin D3] 25 mcg (1,000 unit) Tablet
25 mcg PO DAILY
flecainide 50 mg Tablet
50 mg PO Q12H
albuterol sulfate 90 mcg/actuation Hfa Aerosol Inhaler
1 puff inhalation R Q4HPRN PRN (Reason: asthma/SOB) Qty: 6.7 0RF
cyanocobalamin (vitamin B-12) [Vitamin B-12] 1,000 mcg Tablet
1,000 mcg PO DAILY
Frankincense
1 applic topical DAILYPRN PRN (Reason: knee pains)
omeprazole 20 mg Tablet,Delayed Release (Dr/Ec)
20 mg PO DAILY
mupirocin 2 % Ointment
1 applic TOPICAL BID
Patient Comments:
strated on thursday09/04/24 and completed BID
fluticasone propion-salmeterol [Advair Diskus] 500-50 mcg/dose Blister With Device
1 inh INHALATION BID
metoprolol tartrate 50 mg Tablet
25 mg PO BID
levothyroxine 200 mcg Capsule
200 mcg PO DAILY
Eliquis 5 mg tablet
2.5 mg PO BID Qty: 1 0RF
Rx Instructions:
1/2 tab twice daily--resume 5mg twice a day on 09/10-pm
cefadroxil 500 mg capsule
500 mg PO BID Qty: 14 0RF
Rx Instructions:
*Take w/ food
*Take w/ probiotic
*POST-OP USE
docusate sodium [Colace] 100 mg capsule
100 mg PO BID Qty: 1 0RF
dexamethasone 4 mg tablet
4 mg PO BID Qty: 6 0RF
Rx Instructions:
take with food
post-op use only
Saccharomyces boulardii [Florastor] 250 mg capsule
250 mg PO BID Qty: 1 0RF
magnesium hydroxide [Milk of Magnesia] 400 mg/5 mL suspension
30 ml PO HS PRN (Reason: Constipation) Qty: 1 0RF
sennosides [Senokot] 8.6 mg tablet
17.2 mg PO BID Qty: 2 0RF
ondansetron [ondansetron] 4 mg tablet,disintegrating
4 mg PO Q6H PRN (Reason: n/v) Qty: 20 0RF
Rx Instructions:
take 1/2h b/f pain med if recurrent nausea
allow to dissolve in mouth w/o water
oxycodone 5 mg tablet
5 mg PO Q6H PRN (Reason: 1 tab moderate pain, 2 tabs severe pain) Qty: 30 0RF
Rx Instructions:
Ongoing therapy
acetaminophen 500 mg tablet
1,000 mg PO QID Qty: 0 0RF
Rx Instructions:
DO NOT exceed >4000 mg daily.
gabapentin 100 mg capsule
100 mg PO TID Qty: 1 0RF
Referrals:
Danika Leyva CRNP [Family Provider] -
Activity Restrictions/Additional Instructions:
Please contact your gse mechanic, Dr. Hernandez tomorrow regarding your high blood pressure medications.
Please continue to take your antihypertensives as prescribed.
It was a pleasure meeting you and taking part in your care. We hope for your continued healing and wellness.
Please read discharge instructions in their entirety. However, they are for general education and may not describe your exact diagnosis at discharge. Information on your ER visit and medical conditions were discussed with you along with appropriate
follow up information...
If indicated, please take your medications as instructed and indicated on discharge paperwork.
Please schedule a follow up appointment as directed. Call to schedule an appointment
Please return to the emergency department with ANY change in, persisting, or worsening of symptoms. If any of your symptoms do not improve, or persist, or become more severe within 6-12 hours, please return to the emergency department for further
care.
Please return to the emergency department if you develop a headache, neck pain/stiffness, fever greater than 100.4F, chest pain, shortness of breath, persistent nausea, vomiting, slurred speech, difficulty walking, numbness/tingling, weakness, signs
of infection or any other symptoms that are worrisome to you.
If you have any questions or concerns please do not hesitate to call the Hospital at or E-mail me directly at [email or web address]
Interventions
Interventions:
*Risk Screen - Suicide Last Done: 01/01/25 23:58
*General Assessment Last Done: 01/02/25 03:40
*Neglect/Abuse Screening Last Done: 01/01/25 23:58
*ED- Fall Risk Assessment Last Done: 01/02/25 03:40
*ED COVID-19 Vaccine History Last Done: 01/02/25 03:40
*Nursing Disposition Last Done: 01/02/25 03:40
ED- Cardiac Assessment Last Done: 01/02/25 01:15
ED- Neurological Assessment Last Done: 01/02/25 01:15
ED- Pulmonary Assessment Last Done: 01/02/25 01:15
Discharge Date and Time
Discharge Date/Time: 01/02/25 03:42
Print Language: CITIZEN [place]
[2025-01-02 01:38] LABS: Troponin I 0.015 ng/ml
[2025-01-02 01:52] LABS: ALT (SGPT) 22 U/L (0-35); AST (SGOT) 19 U/L (14-36); Albumin 4.2 g/dl (3.5-5.0); Alkaline Phosphatase 65 U/L (38-126); Blood Urea Nitrogen 18 mg/dl (7-17); Calcium 9.1 mg/dl (8.4-10.2); Carbon Dioxide 28 mmol/L (22-30); Chloride 106 mmol/L (98-107); Estimated Creatinine Clearance 87 ml/min; Glucose 116 mg/dl (70-99); Potassium 4.6 mmol/L (3.5-5.1); Sodium 140 mmol/L (135-145); Total Bilirubin 0.7 mg/dl (0.2-1.3); Total Protein 6.4 g/dl (6.3-8.2); eGFR > 60.00
[2025-01-02 02:00] VITALS: BP 162/78
[2025-01-02 03:00] VITALS: BP 149/77
== END 2025-01-02 03:42 | disposition home or self-care (01) ==
LOC: EMR 23:54
PROVIDERS: Emergency Medicine; EMERGENCY PHYSICIAN Student in an Organized Health Care Education/Training Program; FAMILY PHYSICIAN Nurse Practitioner Family
DX: I10 Essential (primary) hypertension (principal); I48.91 Unspecified atrial fibrillation; J44.9 Chronic obstructive pulmonary disease, unspecified; E03.9 Hypothyroidism, unspecified; Z98.890 Other specified postprocedural states; Z85.850 Personal history of malignant neoplasm of thyroid; Z79.01 Long term (current) use of anticoagulants; Z88.5 Allergy status to narcotic agent; Z88.0 Allergy status to penicillin; Z88.8 Allergy status to other drugs, medicaments and biological substances; Z91.040 Latex allergy status
CPT/HCPCS: 99284; 94760; 80053; 84484; 85025; 93005

== ENCOUNTER → 2025-02-09 15:08 | Outpatient (REF) | payer OTHER, SELFPAY | LOC: RAD 15:08 | PROVIDERS: ATTENDING PHYSICIAN Nurse Practitioner Family | DX: R10.9 Unspecified abdominal pain (principal); R31.9 Hematuria, unspecified | CPT/HCPCS: 74176 ==

== ENCOUNTER → 2025-07-11 15:46 | Outpatient (REF) | payer OTHER, SELFPAY | LOC: RAD 15:46 | PROVIDERS: ATTENDING PHYSICIAN Family Medicine | DX: J40 Bronchitis, not specified as acute or chronic (principal) | CPT/HCPCS: 71046 ==

== ENCOUNTER → 2025-09-11 11:00 | Outpatient (REF) | payer OTHER, SELFPAY | LOC: HWRAD 11:00 | PROVIDERS: ATTENDING PHYSICIAN Student in an Organized Health Care Education/Training Program; FAMILY PHYSICIAN Nurse Practitioner Family | DX: J32.0 Chronic maxillary sinusitis (principal) | CPT/HCPCS: 70486 ==